=== PATIENT | male | born 1945 | race Caucasian/White ===

== ENCOUNTER 2019-09-02 14:01 | Outpatient (CLI) | payer OTHER | END 2019-09-02 14:08 | disposition home or self-care (01) | LOC: LAB 14:01 | DX: R97.20 Elevated prostate specific antigen [PSA] (principal) ==

== ENCOUNTER 2019-10-01 07:16 | Outpatient (CLI) | payer OTHER | END 2019-10-01 07:22 | disposition home or self-care (01) | LOC: SONOGRAMA 07:16 | DX: D29.1 Benign neoplasm of prostate (principal); R97.20 Elevated prostate specific antigen [PSA] ==